=== PATIENT | female | born 2000 | race Two or more races ===

== ENCOUNTER 2022-02-20 23:55 | Emergency (ER) | payer SELFPAY ==
[~2022-02-20] VITALS: Ht 172.7 cm; Wt 64.1 kg
[2022-02-21] VITALS: BP 132/85
[2022-02-21] MEDS ORDERED: MICO45CR44 VG (00:10)
[2022-02-21] MEDS ORDERED: ESCI-8 PO (00:10)
[2022-02-21] MEDS ORDERED: DEXL60CA6 PO (00:10)
[2022-02-21] MEDS ORDERED: ITRA100C3 PO (00:10)
[2022-02-21 01:14] LABS: AMPHET/METH SCREEN,URINE NEGATIVE (NEGATIVE); BARBITURATE SCREEN, URINE NEGATIVE (NEGATIVE); BENZODIAZEPINES SCREEN,URINE NEGATIVE (NEGATIVE); CANNABINOID SCREEN,URINE NEGATIVE (NEGATIVE); COCAINE SCREEN,URINE NEGATIVE (NEGATIVE); METHADONE SCREEN, URINE NEGATIVE (NEGATIVE); OPIATE SCREEN,URINE NEGATIVE (NEGATIVE)
[2022-02-21] MEDS ORDERED: LORazepam 1 MG TABLET PO ONE (01:15)
[2022-02-21 01:19] LABS: PHENCYCLIDINE SCREEN,URINE NEGATIVE (NEGATIVE)
[2022-02-21] MEDS ORDERED: LORA-1000 PO (01:39)
== END 2022-02-21 02:00 | disposition home or self-care (01) ==
LOC: EMS 23:57
DX: F41.9 Anxiety disorder, unspecified (principal); B37.0 Candidal stomatitis; F32.A Depression, unspecified; Z87.19 Personal history of other diseases of the digestive system; Z87.42 Personal history of other diseases of the female genital tract
CPT/HCPCS: 84703; 99283